=== PATIENT | male | born 1965 | race Caucasian/White ===

== ENCOUNTER 2020-05-20 08:09 | Day surgery (SDC) | payer BC ==
[2020-05-20] VITALS (9 sets, daily range): BP systolic 123–145; BP diastolic 77–97; PULSE 57–75; TEMP 97.9
[~2020-05-20] VITALS: Ht 170.3 cm; Wt 96.0 kg
[~2020-05-20 08:09] MED LIST: ASPIRIN E.C. 8181 MG PO; LIPITOR 10MG10 MG PO; NITROSTAT0.4 MG/TAB SL; NORVASC2.5 MG PO; OMEGA 31000 MG PO; PLAVIX 75MG TAB75 MG PO; ZEBETA 5MG5 MG PO
[2020-05-20 08:58] LABS: HEMATOCRIT 42.2 % (42.0-52.0); HEMOGLOBIN 14.8 g/dl (13.5-18.0); MEAN CELL VOLUME 92 fl (80.0-100.0); MEAN CORPUSCULAR HEMOGLOBIN 32 pg (27.0-31.0); MEAN CORPUSCULAR HGB CONC 35 g/dl (33.0-37.0); MEAN PLATELET VOLUME 8.6 fl (7.4-10.4); PLATELET COUNT 211 K/mm3 (130-400); RED BLOOD COUNT 4.61 M/mm3 (4.20-5.60); REDCELL DISTRIBUTION WIDTH-CV 13.2 % (11.5-14.5)
[2020-05-20] MEDS ORDERED: ONE-A-DAY ESSE1 EACH PO (09:01)
[2020-05-20] MEDS ORDERED: VITAMIN D31000 I1 PO (09:01)
[2020-05-20 09:09] LABS: CALCIUM 8.9 mg/dL (8.4-10.2); CREATININE, serum 0.88 (0.66-1.25); POTASSIUM 4.3 mmol/L (3.4-5.0)
[2020-05-20 09:34] LABS: INR 1.1 (0.8-3.0); PROTHROMBIN TIME 11.8 SECONDS (9.7-12.8)
[2020-05-20 09:37] LABS: PARTIAL THROMBOPLASTIN TIME 28.4 SECONDS (26.0-37.0)
== END 2020-05-20 13:52 | disposition home or self-care (01) ==
LOC: COL.CAR 08:09
PROVIDERS: Internal Medicine Cardiovascular Disease
DX: I25.10 Atherosclerotic heart disease of native coronary artery without angina pectoris (principal); Z98.61 Coronary angioplasty status; F17.220 Nicotine dependence, chewing tobacco, uncomplicated; E78.5 Hyperlipidemia, unspecified; Z88.8 Allergy status to other drugs, medicaments and biological substances
CPT/HCPCS: J1644; J2250; J3010; Q9967